=== PATIENT | female | born 1990 | race Caucasian/White ===

== ENCOUNTER 2022-09-04 01:14 | Inpatient (IN) | payer OTHER ==
[2022-09-04] MEDS ORDERED: AMPICILLIN - 2 GM in SODIUM CHLORIDE 100 ML IVPB ONE (02:00)
[2022-09-04] MEDS ORDERED: OXYTOCIN 20 UNITS in 0.9% NS 20 UNIT/1,000 ML INFUS.BAG IV ONE (02:24)
[2022-09-04] MEDS ORDERED: LIDOCAINE HCL 1% PRESERVATIVE FREE - 30ML VIAL ONE (02:25)
[2022-09-04 02:43] LABS: BASO % 0.4 % (0-2.0); EOS % 1.4 % (0-4.5); HEMATOCRIT 38.3 % (32.4-45.2); HEMOGLOBIN 13.4 GM/dL (10.7-15.3); LYMPH % 30.2 % (8-40); MCH 30.3 pg (25.7-33.7); MCHC 34.8 g/dl (32.0-36.0); MEAN CELL VOLUME 86.9 fl (80-96); MEAN PLT VOLUME 10.4 fl (7.5-11.1); MONO % 5.1 % (3.8-10.2); NEUT % 62.9 % (42.8-82.8); PLATELET COUNT 118 10^3/uL (134-434); RBC 4.41 M/mm3 (3.60-5.2); RDW 14.7 % (11.6-15.6); WHITE BLOOD COUNT 10.8 K/mm3 (4.0-10.0)
[2022-09-04 02:51] LABS: INR 0.89 (0.83-1.09); PROTHROMBIN TIME (PATIENT) 10.3 SEC (9.7-13.0)
[2022-09-04 02:54] LABS: ACTIVATED PTT 26.5 SECONDS (25.2-36.5)
[2022-09-04 03:00] VITALS: BMI 32.9
[2022-09-04] MEDS ORDERED: ELECTROLYTE-148 SOLN 1,000 ML IV SCH (03:00)
[2022-09-04 03:06] LABS: CALCIUM 8.9 mg/dL (8.5-10.1)
[2022-09-04] MEDS ORDERED: BUPIVACAINE HCL/PF 0.5% (5MG/ML) 10 ML VIAL ONE (03:06)
[2022-09-04] MEDS ORDERED: FENTANYL CITRATE/PF 50 MCG/ML VIAL ONE (03:06)
[2022-09-04 03:08] LABS: BLOOD UREA NITROGEN 13.5 mg/dL (7-18)
[2022-09-04 03:10] LABS: CREATININE 0.9 mg/dL (0.55-1.3)
[2022-09-04] MEDS ORDERED: AMPICILLIN SODIUM 1 GM VIAL ONE (05:58)
[2022-09-04] MEDS ORDERED: AMPICILLIN - 1 GM in SODIUM CHLORIDE 100 ML IVPB SCH (06:00)
[2022-09-04] MEDS ORDERED: OXYTOCIN 10 UNITS/ML VIAL ONE (06:56)
[2022-09-04 07:30] VITALS: RESP 18
[2022-09-04] MEDS ORDERED: oxyCODONE HCL 5 MG TABLET PO PRN (07:56)
[2022-09-04] MEDS ORDERED: BISACODYL 10 MG SUPP.RECT RC PRN (07:56)
[2022-09-04] MEDS ORDERED: BENZOCAINE 20% 57 GM BOTTLE TP PRN (07:56)
[2022-09-04] MEDS ORDERED: BENZOCAINE 28 GM HEMORRHOIDAL OINTMENT TP PRN (07:56)
[2022-09-04] MEDS ORDERED: METHYLERGONOVINE MALEATE 0.2 MG/1 ML AMP IM PRN (07:56)
[2022-09-04] MEDS ORDERED: WITCH HAZEL 50% (TUCKS) 40 PAD/JAR PAD TP PRN (07:56)
[2022-09-04] MEDS ORDERED: OXYTOCIN 10 UNITS/ML VIAL IM ONE (07:56)
[2022-09-04] MEDS ORDERED: OXYTOCIN 20 UNITS in 0.9% NS 20 UNIT/1,000 ML INFUS.BAG IV SCH (08:00)
[2022-09-04 08:32] LABS: CORD BASE EXCESS -11.6 mmol/L (0-2); CORD HCO3 15.9 mmHg (20-29); CORD PCO2 41.4 mmHg (30-78); CORD pH 7.203 (7.14-7.44)
[2022-09-04 08:39] LABS: CORD BASE EXCESS -12.1 mmol/L (0-2); CORD HCO3 16.4 mmHg (20-29); CORD PCO2 46.1 mmHg (30-78); CORD pH 7.169 (7.14-7.44)
[2022-09-04] MEDS: PRENATAL VITAMINS W/ FOLIC ACID TABLET (FP) PO SCH (09:43)
[2022-09-04 13:08] LABS: POC NITRAZINE POS
[2022-09-04] MEDS: IBUPROFEN 600 MG TABLET (FP) PO PRN (16:33)
[2022-09-05] MEDS: IBUPROFEN 600 MG TABLET (FP) PO PRN ×3 (08:12→23:50)
[2022-09-05 08:16] LABS: BASO % 0.3 % (0-2.0); EOS % 0.5 % (0-4.5); HEMATOCRIT 28.7 % (32.4-45.2); HEMOGLOBIN 9.9 GM/dL (10.7-15.3); LYMPH % 20.8 % (8-40); MCH 30.2 pg (25.7-33.7); MCHC 34.5 g/dl (32.0-36.0); MEAN CELL VOLUME 87.7 fl (80-96); MEAN PLT VOLUME 9.6 fl (7.5-11.1); MONO % 3.7 % (3.8-10.2); NEUT % 74.7 % (42.8-82.8); PLATELET COUNT 91 10^3/uL (134-434); RBC 3.27 M/mm3 (3.60-5.2); RDW 14.8 % (11.6-15.6); WHITE BLOOD COUNT 11.1 K/mm3 (4.0-10.0)
[2022-09-05] MEDS: SENNOSIDES/DOCUSATE COMBO (SENNA PLUS) TABLET (UD) PO SCH ×2 (10:00→21:15)
[2022-09-05] MEDS: ACETAMINOPHEN 325 MG TABLET (FP) PO PRN ×2 (10:02→18:16)
[2022-09-05] MEDS: PRENATAL VITAMINS W/ FOLIC ACID TABLET (FP) PO SCH (10:03)
[2022-09-05] MEDS ORDERED: SENNOSIDES/DOCUSATE COMBO (SENNA PLUS) TABLET (UD) PO PRN (22:00)
[2022-09-06 08:49] VITALS: TEMP 98.3
[2022-09-06 09:03] VITALS: BP 124/83; PULSE 72
[2022-09-06 09:10] LABS: HEMATOCRIT 26.1 % (32.4-45.2); HEMOGLOBIN 9.2 GM/dL (10.7-15.3); MCH 30.8 pg (25.7-33.7); MCHC 35.1 g/dl (32.0-36.0); MEAN CELL VOLUME 87.6 fl (80-96); MEAN PLT VOLUME 9.5 fl (7.5-11.1); PLATELET COUNT 102 10^3/uL (134-434); RBC 2.98 M/mm3 (3.60-5.2); RDW 14.8 % (11.6-15.6); WHITE BLOOD COUNT 8.4 K/mm3 (4.0-10.0)
[2022-09-06] MEDS: PRENATAL VITAMINS W/ FOLIC ACID TABLET (FP) PO SCH (09:57)
[2022-09-06] MEDS: SENNOSIDES/DOCUSATE COMBO (SENNA PLUS) TABLET (UD) PO SCH (10:08)
[2022-09-06] MEDS: IBUPROFEN 600 MG TABLET (FP) PO PRN (10:08)
== END 2022-09-06 13:35 | disposition home or self-care (01) | DRG 560 ==
LOC: JLDR 01:14 → J3W 09:30
PROVIDERS: ADMIT Obstetrics & Gynecology; ATTEND Obstetrics & Gynecology
PROC: 10D07Z6 Extraction of Products of Conception, Vacuum, Via Natural or Artificial Opening (ICD-10-PCS; principal; 2022-09-04)
PROC: 0W8NXZZ Division of Female Perineum, External Approach (ICD-10-PCS; 2022-09-04)
DX: O75.81 Maternal exhaustion complicating labor and delivery (principal); O63.1 Prolonged second stage (of labor); O99.02 Anemia complicating childbirth; D64.9 Anemia, unspecified; O99.12 Other diseases of the blood and blood-forming organs and certain disorders involving the immune mechanism complicating childbirth; D69.6 Thrombocytopenia, unspecified; Z3A.38 38 weeks gestation of pregnancy; Z37.0 Single live birth
CPT/HCPCS: 36415; 36600; 59409; 80048; 82803; 83986-QW; 85025; 85027; 85610; 85730; 86780; 86850; 86900; 86901; C9803-CS; U0003; U0005